=== PATIENT | female | born 1965 | race Two or more races ===

== ENCOUNTER 2024-06-04 16:37 | Emergency (ER) | payer OTHER ==
[~2024-06-04] VITALS: Ht 154.9 cm; Wt 84.0 kg
[2024-06-04 16:42] VITALS: BP 123/73; PULSE 74; RESP 20; TEMP 98.3; O2SAT 97
[2024-06-04] MEDS ORDERED: AMLO-257 PO (16:46)
[2024-06-04 17:18] LABS: COVID AG,FIA SOURCE NASAL SWAB
[2024-06-04 17:42] LABS: INFLUENZA TYPE A NEGATIVE FOR TYPE A (NEGATIVE); INFLUENZA TYPE B NEGATIVE FOR TYPE B (NEGATIVE)
[2024-06-04 17:43] LABS: SARS-COV2 (COVID) ANTIGEN,FIA Negative (Negative)
[2024-06-04] MEDS ORDERED: BENZ-227 PO (19:08)
[2024-06-04] MEDS: DEXAMETHASONE 4 MG TABLET PO ONE (19:28)
[2024-06-04] MEDS: IBUPROFEN 400 MG TABLET PO ONE (19:28)
[2024-06-04] MEDS: BENZONATATE 100 MG CAPSULE PO ONE (19:29)
== END 2024-06-04 19:55 | disposition home or self-care (01) ==
LOC: EMS 16:37
DX: J06.9 Acute upper respiratory infection, unspecified (principal); B97.89 Other viral agents as the cause of diseases classified elsewhere; I10 Essential (primary) hypertension; Z90.710 Acquired absence of both cervix and uterus; Z98.890 Other specified postprocedural states; Z91.041 Radiographic dye allergy status; Z88.5 Allergy status to narcotic agent; Z79.899 Other long term (current) drug therapy; Z20.822 Contact with and (suspected) exposure to COVID-19
CPT/HCPCS: 99284; 71045; 87426; 87804; J8540

== ENCOUNTER 2024-09-27 19:51 | Emergency (ER) | payer OTHER ==
[~2024-09-27] VITALS: Ht 167.6 cm; Wt 81.8 kg
[~2024-09-27 19:51] MED LIST: AMLO-257 PO; METH-659 PO; NAPR-1196 PO; OMEP20CA12 PO; PRED-554 PO; SUMA100T21 PO; TIOT18CA8 IH
[2024-09-27] MEDS ORDERED: BACL10TA PO (20:00)
[2024-09-27] MEDS: IBUPROFEN 600 MG TABLET PO ONE (20:25)
[2024-09-27] MEDS: ONDANSETRON 4 MG TABLET PO ONE (20:25)
[2024-09-27] MEDS: LIDOCAINE 5% TRANSDERMAL PATCH TD ONE (22:51)
[2024-09-27] MEDS: ACETAMINOPHEN 500 MG TABLET PO ONE (22:51)
[2024-09-27] MEDS: KETOROLAC TROMETHAMINE 30 MG/ML VIAL IM ONE (22:51)
[2024-09-27] MEDS ORDERED: IBUP-1492 PO (23:19)
[2024-09-27] MEDS ORDERED: LIDO-57 TP (23:19)
[2024-09-27] MEDS ORDERED: ACET-3385 PO (23:19)
[2024-09-27] MEDS ORDERED: OXYC5 PO (23:31)
[2024-09-27 23:34] VITALS: BP 125/88; PULSE 65; RESP 18; TEMP 97.705256; O2SAT 95
== END 2024-09-28 01:04 | disposition home or self-care (01) ==
LOC: EMS 19:51
DX: S39.012A Strain of muscle, fascia and tendon of lower back, initial encounter (principal); I10 Essential (primary) hypertension; Z88.5 Allergy status to narcotic agent; Z91.041 Radiographic dye allergy status; Z90.710 Acquired absence of both cervix and uterus; Z79.899 Other long term (current) drug therapy; X50.0XXA Overexertion from strenuous movement or load, initial encounter; Y93.89 Activity, other specified; Y92.89 Other specified places as the place of occurrence of the external cause; Y99.8 Other external cause status
CPT/HCPCS: 99284; 96372; J1885; Q0162